=== PATIENT | male | born 1965 | race Caucasian/White ===

== ENCOUNTER → 2024-07-27 | Outpatient (CLI) | payer SELFPAY ==
--- NOTE | 2024-07-27 14:55 | CT_ITS ---
STUDY: CT CHEST WITHOUT CONTRAST REASON FOR EXAM: Male, 59 years old. Coronary calcification SCREENING RADIATION DOSAGE (If Supplied By Facility): CTDIvol = ( 12.19 ) mGy, DLP = ( 219.42 ) mGycm TECHNIQUE: Transaxial imaging was performed without the administration of intravenous contrast material. Overread examination. Individualized dose optimization techniques were used for this CT. COMPARISON: No relevant priors. FINDINGS: CHEST The lungs are normal. There is no demonstrated pleural abnormality. There are calcifications of the coronary arteries. There are small lymph nodes within the mediastinum, which are normal in size and morphology most compatible with reactive lymph hyperplasia. Normal hilar regions. Normal unenhanced pulmonary arteries. Normal aorta arch and descending thoracic aorta. Normal osseous structures. There is no demonstrated abnormality of the visualized upper abdomen. CT/Limited Chest CT Cardiac Only IMPRESSION: Coronary artery calcification. Electronically Signed: Scot Laguerre MD at 12:39 EDT ,
--- NOTE | 2024-07-27 16:34 | CA.SCORE ---
Calcium Scoring Date of Study:: 07/27/24 Indications Indications: Screening Coronary Calcium Scoring: High-resolution Computed Tomographic imaging of the chest was performed on [07/27/2024], with particular attention paid to the coronary arteries. Images from the examination were analyzed for the presence and extent of coronary artery calcification , using coronary calcium quantification software. The patient tolerated the procedure well and there were no complications. The results of the coronary calcification analysis are provided below. Findings Coronary Artery Left Main (LM): 3.97 Left Anterior Descending (LAD): 48 Left Circumflex (LCX): 0.79 Right Coronary Artery (RCA): 46 Total Agatston Score: 98.76 Percentile Rankin-75th percentile Calcium Scoring Interpretation: Different methods to categorize the overall amount of coronary plaque. Overall amount CAC SIS Visual of coronary plaque P1 Mild -100 <2 1-2 vessels with mild amount of plaque P2 Moderate 101-300 3-4 1-2 vessels with moderate amount, 3 vessels with mild amount of plaque P3 Severe 301-999 5-7 3 vessels with moderate amount, 1 vessel with severe amount of plaque P4 Extensive >1000 >8 2-3 vessels with severe amount of plaque Calcium Score: Mild: 1-2 vessels w/mild amount of plaque Conclusion: Mild atherosclerotic plaquing noted
== END | disposition home or self-care (01) ==
DX: R53.83 Other fatigue (principal); E55.9 Vitamin D deficiency, unspecified; Z13.220 Encounter for screening for lipoid disorders
CPT/HCPCS: 75571; 76380